=== PATIENT | male | born 1980 | race American Indian/Alaskan Native ===

== ENCOUNTER 2018-11-25 07:54 | Emergency (ER) | payer OTHER ==
[2018-11-25] MEDS ORDERED: TYLENOL ONE (08:11)
[2018-11-25] MEDS ORDERED: ASPIRIN PO ONE (08:13)
[2018-11-25] MEDS ORDERED: TYLENOL PO ONE (08:14)
[2018-11-25 08:39] LABS: Basophils % (Auto) 0.4 % (0.0-1.8); Eosinophils # (Auto) 0.1 K/mm3 (0.0-0.4); Eosinophils % (Auto) 1.6 % (0.0-4.3); Hemoglobin 16.4 gm/dl (11.8-15.2); Lymphocytes # (Auto) 0.9 K/mm3 (1.2-5.4); Lymphocytes % (Auto) 14.2 % (13.4-35.0); Mean Corpuscular HGB Conc 35 % (32-34); Mean Corpuscular Volume 85 fl (84-94); Monocytes # (Auto) 0.8 K/mm3 (0.0-0.8); Monocytes % (Auto) 12.2 % (0.0-7.3); Platelet Count 256 K/mm3 (140-440); Red Blood Count 5.54 M/mm3 (3.65-5.03); Red Cell Distribution Width 13.4 % (13.2-15.2)
[2018-11-25 08:56] LABS: BUN/Creatinine Ratio 11; Blood Urea Nitrogen 11 mg/dL (9-20); Calcium 9.4 mg/dL (8.4-10.2); Hemolysis Index 16
--- NOTE | 2018-11-25 10:31 | Emergency Department Report ---
ED Syncope HPI - General Chief Complaint: Syncope Stated Complaint: PASS OUT/FLU SYMPTOMS Time Seen by Provider: 11/25/18 10:15 - History of Present Illness Initial Comments: 38-year-old male presents to the ED for syncopal episode yesterday. He states he passed out after smoking marijuana and then having a coughing spell. The patient states he awoke with generalized body aches, chills, continued cough. Patient reports headache as well. Reports nausea, denies vomiting, diarrhea, abdominal pain. Patient also reports urinary frequency. Timing/Prior Episodes: other (single episode yesterday) Precipitating Factors: Positive: lightheadedness. Negative: blurred vision, in jury, recent head trauma, rapid heart beat Context: coughing Loss of Consciousness: brief (seconds) Current Symptoms: back to normal - Related Data Allergies/Adverse Reactions: Allergies No Known Allergies Allergy (Unverified 10/18/14 08:14) Home Medications: Ambulatory Orders Benzonatate [Tessalon Perles] 100 mg PO Q8HR PRN #20 capsule 11/25/18 Naproxen [Naprosyn] 500 mg PO BID #20 tablet 11/25/18 traMADol [Ultram] 50 mg PO Q6HR PRN #7 tablet 11/25/18 ED Review of Systems ROS: Stated complaint: PASS OUT/FLU SYMPTOMS Other details as noted in HPI Comment: All other systems reviewed and negative Constitutional: chills, fever Respiratory: cough Gastrointestinal: nausea Genitourinary: frequency Musculoskeletal: myalgia Neurological: headache ED Past Medical Hx - Past Medical History Previous Medical History?: No - Surgical History Hx Appendectomy: Yes - Social History Smoking Status: Current Some Day Smoker Substance Use Type: Marijuana - Medications Home Medications: Home Medications Medication Instructions Recorded Confirmed Last Taken Type Benzonatate [Tessalon Perles] 100 mg PO Q8HR PRN #20 capsule 11/25/18 Unknown Rx Naproxen [Naprosyn] 500 mg PO BID #20 tablet 11/25/18 Unknown Rx traMADol [Ultram] 50 mg PO Q6HR PRN #7 tablet 11/25/18 Unknown Rx ED Physical Exam - General Limitations: No Limitations General appearance: alert, in no apparent distress - Head Head exam: Present: atraumatic, normocephalic - Eye Eye exam: Present: normal appearance - ENT ENT exam: Present: mucous membranes moist - Neck Neck exam: Present: normal inspection - Respiratory Respiratory exam: Present: normal lung sounds bilaterally. Absent: respiratory distress, wheezes - Cardiovascular Cardiovascular Exam: Present: regular rate, normal rhythm - GI/Abdominal GI/Abdominal exam: Present: soft. Absent: distended, tenderness - Extremities Exam Extremities exam: Present: normal inspection - Neurological Exam Neurological exam: Present: alert, oriented X3, CN II-XII intact. Absent: motor sensory deficit - Psychiatric Psychiatric exam: Present: normal affect, normal mood - Skin Skin exam: Present: warm, dry, intact, normal color ED Course Vital Signs 11/25/18 11/25/18 08:09 12:30 Temperature 100.8 F H Pulse Rate 87 98 H Respiratory 16 16 Rate Blood Pressure 127/49 Blood Pressure 129/76 [Left] O2 Sat by Pulse 99 96 Oximetry ED Medical Decision Making - Lab Data Result diagrams: 11/25/18 08:24 11/25/18 08:16 - EKG Data -: EKG Interpreted by Dc EKG shows normal: sinus rhythm, axis, intervals, QRS complexes, ST-T waves Rate: normal - EKG Data Interpretation: no acute changes - Radiology Data Radiology results: report reviewed, image reviewed - Medical Decision Making 38-year-old male likely with viral illness. He reported syncopal episode on yesterday after having a coughing spell. He reports body aches, nausea, headache, chills. Chest x-ray negative. Labs, EKG unremarkable. Patient with low-grade temp upon arrival, feels much better at this time. Will discharge home. Return precautions given. Outpatient follow-up given. - Differential Diagnosis influenza, UTI, viral illness, arrythmia, dehydration Critical care attestation.: If time is entered above; I have spent that time in minutes in the direct care of this critically ill patient, excluding procedure time. ED Disposition Clinical Impression: Syncope, Viral illness Disposition: -01 TO HOME OR SELFCARE Is pt being admited?: No Condition: Stable Instructions: Syncope (ED), Upper Respiratory Infection (ED), Viral Syndrome (ED) Prescriptions: Benzonatate [Tessalon Perles] 100 mg PO Q8HR PRN #20 capsule PRN Reason: Cough Naproxen [Naprosyn] 500 mg PO BID #20 tablet traMADol [Ultram] 50 mg PO Q6HR PRN #7 tablet PRN Reason: Pain Referrals: JULIA SANDERS MD [Primary Care Provider] - 3-5 Days [facility] [Provider Group] - 3-5 Days Forms: Work/School Release Form(ED) Time of Disposition: 12:18
--- NOTE | 2018-11-25 10:51 | XRay Report ---
ROUTINE CHEST, TWO VIEWS: HISTORY: Cough, fever. The trachea, heart, mediastinal contour, lung dean and bony thorax are unremarkable. IMPRESSION: Unremarkable chest x-ray.
[2018-11-25 11:51] LABS: Bilirubin,Urine NEG (Negative); Blood,Urine NEG (Negative); Color,Urine Yellow (Yellow); Mucus,Urine FEW /HPF; Protein,Urine <15 mg/dL mg/dL (Negative)
[2018-11-25] MEDS ORDERED: ULTRAM PO ONE (12:16)
[2018-11-25 12:38] VITALS: BP 129/76
== END 2018-11-25 12:37 | disposition home or self-care (01) ==
LOC: ED 07:54
DX: R55 Syncope and collapse (principal); B34.9 Viral infection, unspecified; F17.200 Nicotine dependence, unspecified, uncomplicated; F12.10 Cannabis abuse, uncomplicated; Z90.49 Acquired absence of other specified parts of digestive tract
CPT/HCPCS: 36415; 71046; 80048; 81001; 84484; 85025; 87400; 93005; 93010